=== PATIENT | male | born 1980 | race Caucasian/White ===

== ENCOUNTER 2017-11-27 18:25 | Emergency (ER) | payer OTHER ==
[~2017-11-27] VITALS: Ht 185.4 cm; Wt 56.9 kg
[~2017-11-27 18:25] MED LIST: FIORICET,ESG1 TABLET PO; FLEXERIL10 MG PO; FLEXERIL5 MG PO; MOTRIN600 MG PO; NAPROSYN500 MG PO; NAPROXEN500 MG PO; NORCO 5/3251 TABLET PO; PREDNISONE10 MG PO; PRILOSEC20 MG PO
[2017-11-27 19:33] LABS: HEMATOCRIT 45.7 % (38.0-50.0); HEMOGLOBIN 15.5 G/DL (12.5-16.6); MCH 31.7 PG (29.0-34.0); MCHC 33.9 G/DL (30.0-36.0); MCV 93.5 FL (86-99); PLATELET COUNT 228 K/uL (156-360); RBC DIS.WIDTH-CV 12.8 % (11.8-14.6); RBC DIS.WIDTH-SD 44.2 % (39-53); RED BLOOD COUNT 4.89 M/uL (4.00-5.50); WHITE BLOOD COUNT 9.3 K/uL (4.1-10.2)
[2017-11-27 19:47] LABS: CHLORIDE 103 mEq/L (99-109); POTASSIUM 4.1 mEq/L (3.7-5.4); SODIUM 141 mEq/L (136-147)
[2017-11-27 19:48] LABS: GLUCOSE 57 mg/dL (70-99)
[2017-11-27 19:52] LABS: CREATININE 1.1 mg/dL (0.6-1.3); GFR ESTIMATE (CALCULATED) > 59 mL/min/ (58.99-99999)
[2017-11-27 19:53] LABS: UREA NITROGEN (BUN) 20 mg/dL (9-23)
[2017-11-27 19:56] LABS: TROP-I INTERPRETATION NEGATIVE; TROPONIN-I < 0.01 ng/mL (0.0-0.30)
[2017-11-27] MEDS ORDERED: NORCO 10/3251 TABLET PO (21:54)
[2017-11-27] MEDS ORDERED: NAPROSYN500 MG PO (21:54)
[2017-11-27 22:18] VITALS: BP 133/89
== END 2017-11-27 22:19 | disposition home or self-care (01) ==
LOC: EME 18:25
DX: M50.222 Other cervical disc displacement at C5-C6 level (principal); M54.12 Radiculopathy, cervical region; F17.200 Nicotine dependence, unspecified, uncomplicated
CPT/HCPCS: 71046; 72125; 80048; 84484; 85027; 93005; 99281; 99284